=== PATIENT | female | born 1970 | race Caucasian/White ===

== ENCOUNTER 2019-02-18 16:36 | Observation (INO) ==
[2019-02-18] MEDS ORDERED: ASPIRIN PO ONE (16:44)
--- NOTE | 2019-02-18 16:51 | EKG Report ---
Test Performed on : 02/18/2019 4:46:46 PM Test Reason : chest pain Blood Pressure : / mmHG Vent. Rate : 094 BPM Atrial Rate : 094 BPM P-R Int : 134 ms QRS Dur : 080 ms QT Int : 362 ms P-R-T Axes : 010 071 002 degrees QTc Int : 452 ms Normal sinus rhythm. Normal ECG No previous ECGs available Unconfirmed Result
[2019-02-18] MEDS ORDERED: ATIVAN PO ONE (17:05)
[2019-02-18] MEDS ORDERED: NITROGLYCERIN SL ONE (17:05)
--- NOTE | 2019-02-18 17:10 | Diag Imaging Result Doc PS360 ---
EXAM: CHEST-PORTABLE INDICATION: chest pain TECHNIQUE: One view COMPARISON: None. FINDINGS: The lungs are grossly clear. There is no discrete pleural fluid collection or pneumothorax. The cardiomediastinal silhouette and central vasculature are grossly unremarkable. IMPRESSION: No evidence of acute pathology by plain radiograph. Electronically signed by Geoffrey Ureña 02/18/2019 5:08 PM
[2019-02-18 17:12] LABS: BASO# 0.06 X1000 (0.0-0.2); BASO% 0.6 % (0.0-0.8); EOS# 0.18 X1000 (0.0-0.7); EOS% 1.9 % (0.0-10.0); HEMATOCRIT 43.4 % (37.0-47.0); HEMOGLOBIN 14.6 g/dL (12.0-16.0); IMM GRAN# 0.01 X1000 (0.0-0.04); IMM GRAN% 0.1 % (0.0-0.5); LYMPH# 2.81 X1000 (1.2-3.4); LYMPH% 29.1 % (20.5-51.1); MCH 28.3 PG (27-31); MCHC 33.6 g/dL (33-37); MCV 84.3 FL (81-99); MONO# 1.03 X1000 (0.11-0.59); MONO% 10.7 % (1.7-9.3); MPV 10.5 FL (7.4-10.4); NEUT# 5.58 X1000 (1.4-6.5); NEUT% 57.6 % (42.2-75.2); PLT 340 X1000 (130-400); RBC 5.15 XMIL (4.2-5.4); RDW 14.9 % (11.5-14.5); WBC 9.67 X1000 (4.8-10.8)
[2019-02-18 17:43] LABS: AGAP 14; ALBUMIN 4.5 g/dL (3.5-5.0); ALKALINE PHOSPHATASE 108 U/L (32-104); BUN 10 mg/dL (8-22); CALCIUM 10.2 mg/dL (8.8-10.2); CHLORIDE 105 mmol/L (98-107); COSMO 286; CREATININE 0.8 mg/dL (0.5-0.9); ESTIMATED GFR > 60; GLUCOSE 97 mg/dL (70-104); GOT 23 U/L (10-30); GPT 21 U/L (10-36); POTASSIUM 3.8 mmol/L (3.5-5.1); SODIUM 144 mmol/L (136-145); TCO2 25 mmol/L (25-35); TOTAL PROTEIN 7.2 g/dL (6.3-8.3)
[2019-02-18 17:53] LABS: INR 0.9; PROTIME 12.6 Seconds (11.0-16.0)
[2019-02-18 17:54] LABS: PTT 32.1 Seconds (22.3-41.8)
[2019-02-18 18:09] LABS: CK INDEX 2.1 (0.0-2.5); CK-MB 5.52 ng/mL (0.0-5.0)
[2019-02-18] MEDS ORDERED: TORADOL IV PRN (19:29)
[2019-02-18] MEDS ORDERED: MORPHINE IV PRN (19:29)
[2019-02-18] MEDS ORDERED: TYLENOL PO PRN (19:29)
[2019-02-18] MEDS ORDERED: ZOFRAN IV PRN (19:29)
--- NOTE | 2019-02-18 19:29 | PROVIDER DOCUMENTATION ---
This chart was entered by Shannon Benavides Scribe, acting as scribe for Randy Rice MD. HPI-Chest Pain - General Chief Complaint: Chest Pain Stated Complaint: SOB, CHEST PAIN Time Seen by Provider: 02/18/19 17:00 Source: patient, family Allergies/Adverse Reactions: Patient Allergies Allergy/AdvReac Type Severity Reaction Status Date / Time No Known Allergies Allergy Verified 02/18/19 16:42 Home Medications: Home Medication List Medication Instructions Recorded Confirmed Last Taken Type Amoxicillin/Potassium Clav 1 each PO BID #20 tablet 08/28/15 Unknown Rx [Augmentin 875-125 Tablet] - History of Present Illness-CP Nature of Presenting Problem: 48 yowf presents to the ed with c/o chest pain, heartburn, scapula pain and numbness to bilateral hands and lips. pt sts acute onset was 1300 today after lunch, pt thought it was gerd sx so took antacid but had no relief. pt is tearfu l and anxious on exam and sts pain is still present Location: reports: substernal (and left anterior) Chest Pain Radiation: reports: back (left scapula) Quality of Pain: reports: burning Severity in ED: moderate Onset/Duration: this afternoon (1300) Timing: still present Modifying Factors: improves with: nothing Associated Symptoms: reports: back pain. denies: abdominal pain, dizziness, headache, nausea, shortness of breath, vomiting Nitro Today/Relief: no nitro taken today Aspirin Treatment Today: 325 mg x 1, provided by ED Prior Chest Pain/Cardiac Workup: reports: no prior chest pain Similar Symptoms Previously?: No Recently Seen Here or By Another Healthcare Provider: No Review of Systems - Adult - REVIEW OF SYSTEMS - ADULT Constitutional: reports: no symptoms reported Eyes: reports: no symptoms reported Ears, Nose, Mouth & Throat: reports: no symptoms reported Cardiovascular: reports: see HPI, chest pain. denies: edema, palpitations Respiratory: denies: cough, shortness of breath, wheezing Gastrointestinal: reports: see HPI. denies: abdominal pain, diarrhea, nausea, vomiting Genitourinary: reports: no symptoms reported Musculoskeletal: reports: see HPI, back pain. denies: neck pain Integumentary: reports: no symptoms reported Neurological: reports: see HPI, numbness (bilateral hands and lips). denies: dizziness/vertigo, headache/migraines, seizure, slurred speech, syncope, tremors Psychiatric: reports: no symptoms reported Endocrine: reports: no symptoms reported Hematologic/Lymphatic: reports: no symptoms reported Allergic/Immunologic: reports: no symptoms reported All Other Systems: Reviewed and Negative Past History - Adult - PAST MEDICAL HISTORY-ADULT Review of Records: reports: Nursing Assessment Review, Medications Reviewed Major Childhood Illnesses: reports: denies history Cardiovascular: reports: denies history Respiratory: reports: denies history Gastrointestinal: reports: GERD Obstetrical/Gynecological: reports: denies history Genitourinary: reports: denies history Musculoskeletal: reports: denies history Hand Dominance: Right Handed Neurological: reports: denies history Psychiatric: reports: denies history Endocrine/Immune: reports: denies history Other Conditions: reports: denies history - PRIOR SURGERIES/PROCEDURES Surgical/Procedure History: reports: other (sinus sx) - IMMUNIZATION STATUS Childhood Immunizations: See Nurse Assessment Flu Vaccine: See Nurse Assessment - FAMILY HISTORY Family History: reviewed, not pertinent - SOCIAL HISTORY Smoking: denies Alcohol Use Frequency: never Living Situation: family Physical Exam-General - PHYSICAL EXAM-ADULT Initial Vital Signs Reviewed: Yes - CONSTITUTIONAL General Appearance: alert, mild distress, obese, anxious - EYES Eyes: PERRL/EOMI, pink conjunctivae - HEAD, EARS, NOSE, MOUTH & THROAT HENMT: moist mucous membranes - NECK Neck: non-tender, full range of motion, supple, normal inspection - RESPIRATORY Respiratory: chest non-tender, lungs clear, normal breath sounds - CARDIOVASCULAR Cardiovascular: normal peripheral pulses, regular rate, rhythm - CHEST (BREASTS) Chest/Breast: no tenderness - GASTROINTESTINAL (ABDOMEN) Abdominal Exam: normal bowel sounds, non tender, soft - GENITOURINARY Female Genitalia/Pelvic Exam: deferred Rectal Exam: deferred Hemoccult Exam: deferred - LYMPHATIC Lymphatic: no adenopathy - MUSCULOSKELETAL Back Exam: normal inspection, no CVA tenderness, no vertebral tenderness Extremity: normal range of motion, non-tender, normal gait, normal inspection, no pedal edema, no calf tenderness, normal capillary refill, pelvis stable - SKIN Integumentary: normal color, normal turgor, warm/dry - NEUROLOGIC Neurologic: grossly normal, no motor/sensory deficits - PSYCHIATRIC Psych/Mental Status: normal mood/affect, normal thought content, normal thought process, oriented x 3, anxious, tearful - HEART Score HEART Score: History: Moderately Suspicious HEART Score: ECG: Normal HEART Score: Age: 45-65 Years HEART Score: Risk Factors for Atherosclerotic Disease: 1 or 2 Risk Factors HEART Score: Troponin: < or = Normal Limit Total HEART Score:: 3 Progress - PLAN OF CARE/RESULTS Progress/Plan/Lab Results: Vital Signs - 8 hr 02/18/19 16:40 02/18/19 18:17 02/18/19 18:59 Temperature 98.1 F Pulse Rate 95 H 82 88 Respiratory Rate 16 25 H 17 Blood Pressure 126/59 117/65 111/68 O2 Sat by Pulse Oximetry 97 98 98 Laboratory Results - last 24 hr 02/18/19 02/18/19 02/18/19 16:55 16:55 16:55 WBC RBC Hgb Hct MCV MCH MCHC RDW Std Deviation Plt Count MPV Immature Gran % (Auto) Neut % (Auto) Lymph % (Auto) [place] % (Auto) Eos % (Auto) Baso % (Auto) Immature Gran # (Auto) Neut # (Auto) Lymph # (Auto) [place] # (Auto) Eos # (Auto) Baso # (Auto) PT INR PTT (Actin FS) Sodium 144 Potassium 3.8 Chloride 105 Carbon Dioxide 25 Anion Gap 14 BUN 10 Creatinine 0.8 Estimated GFR/1.73 m2 > 60 BUN/Creatinine Ratio 13 Glucose 97 Calculated Osmolality 286 Calcium 10.2 Total Bilirubin 0.40 AST 23 ALT 21 Alkaline Phosphatase 108 H Creatine Kinase 259 H Creatine Kinase Index 2.1 CK-MB (CK-2) 5.52 H Troponin T < 0.010 Eed-E-Nwwfvdfwriy Pept Total Protein 7.2 Albumin 4.5 Globulin 3.0 Albumin/Globulin Ratio 2.0 02/18/19 02/18/19 02/18/19 16:55 16:55 16:55 WBC 9.67 RBC 5.15 Hgb 14.6 Hct 43.4 MCV 84.3 MCH 28.3 MCHC 33.6 RDW Std Deviation 14.9 H Plt Count 340 MPV 10.5 H Immature Gran % (Auto) 0.1 Neut % (Auto) 57.6 Lymph % (Auto) 29.1 [place] % (Auto) 10.7 H Eos % (Auto) 1.9 Baso % (Auto) 0.6 Immature Gran # (Auto) 0.01 Neut # (Auto) 5.58 Lymph # (Auto) 2.81 [place] # (Auto) 1.03 H Eos # (Auto) 0.18 Baso # (Auto) 0.06 PT 12.6 INR 0.90 PTT (Actin FS) 32.1 Sodium Potassium Chloride Carbon Dioxide Anion Gap BUN Creatinine Estimated GFR/1.73 m2 BUN/Creatinine Ratio Glucose Calculated Osmolality Calcium Total Bilirubin AST ALT Alkaline Phosphatase Creatine Kinase Creatine Kinase Index CK-MB (CK-2) Troponin T Esa-I-Psqifrezmyq Pept 19 Total Protein Albumin Globulin Albumin/Globulin Ratio Orders Category Date Time Status Cardiac Monitoring DIRECTED Care 02/18/19 16:44 Active Oxygen Therapy- ED Nursing DIRECTED Care 02/18/19 16:44 Active Saline Loc NOW Care 02/18/19 16:44 Active CHEST-PORTABLE [RAD] Stat Exams 02/18/19 16:45 Completed CBC WITH ELECTRONIC DIFF [HEME] Stat Lab 02/18/19 16:55 Completed CK PROFILE [SP CHEM] Stat Lab 02/18/19 16:55 Completed COMPREHENSIVE METABOLIC PANEL [CHEM] Stat Lab 02/18/19 16:55 Completed PRO B-NATRIURETIC PEPTIDE Stat Lab 02/18/19 16:55 Completed PROTIME WITH INR [COAG] Stat Lab 02/18/19 16:55 Completed PTT [COAG] Stat Lab 02/18/19 16:55 Completed TROPONIN T Stat Lab 02/18/19 16:55 Completed TROPONIN T Timed Lab 02/18/19 21:00 Uncollected Aspirin Med 02/18/19 16:44 Discontinued 325 mg PO NOW ONE Lorazepam [Ativan] Med 02/18/19 17:05 Discontinued 0.5 mg PO NOW ONE Nitroglycerin Sl [Nitroglycerin] Med 02/18/19 17:05 Discontinued 0.4 mg SL NOW ONE CP/SOB/Palp >45 yrs of Age Stat Oth 02/18/19 16:44 Ordered EKG [EKG] Stat Ther 02/18/19 16:43 Draft Result Diagrams: 02/18/19 16:55 02/18/19 16:55 - REASSESSMENT Reassessment #1 Time Reassessed: 17:16 Status: unchanged - EKG 1 Time of EKG reading by physician:: 16:46 EKG Read and Signed by:: Randy Rice EKG Interpretation (*Must complete 3 of following elements*): Normal Rate: 94 Rhythm: nsr [place]: normal QRS: normal MA Interval: normal ST Wave: normal - XRAY 1 XRAY: Bilateral XRAY Study: Chest Impression: See EMR Report (EXAM: CHEST-PORTABLE INDICATION: chest pain TECHNIQUE: One view COMPARISON: None. FINDINGS: The lungs are grossly clear. There is no discrete pleural fluid collection or pneumothorax. The cardiomed iastinal silhouette and central vasculature are grossly unremarkable. IMPRESSION: No evidence of acute pathology by plain radiograph. Electronically signed by Geoffrey Ureña 02/18/2019 5:08 PM 02/18/191707 Interpreting Physician: Geoffrey Ureña MD Dictated Date/Time: 02/18/191707 cc: Randy Rice MD; Nabor Robb MD) - CONSULTS/PCP/HOSPITALIST Notification #1 *Consult/PCP/Hospitalist*: Dr Sawyer Time Discussed: 19:29 Consult Disposition: Admit Departure - Departure Date of Disposition Decision: 02/18/19 Time of Disposition Decision: 19:29 DIAGNOSIS: Chest pain Disposition: ADMITTED INPATIENT 09 Certified Medical Emergency: Emergent Condition: Fair Referrals and Follow-Ups: Nabor Robb MD [Primary Care Provider] - - Critical Care Note This patient required my direct & personal management of CC.: No Attestation - Physician/ KYLEE Attestation Patient care was provided by Advanced Practice Provider:: No The physician spent face to face time with patient:: Yes Advanced Practice Provider documentation review:: Supervising physician onsite and consulted in the evaluation and care of this patient. The physician did have a face to face encounter with the patient. This chart was documented by the indicated scribe, (Shannon Benavides Scribe) and accurately reflects the services I performed and decisions made by me, Randy Rice MD, as attested by the provider's signature.
[2019-02-19 11:23] VITALS: BP 98/53
--- NOTE | 2019-02-19 13:07 | HISTORY AND PHYSICAL ---
DATE OF HISTORY AND PHYSICAL: 02/19/2019 PRIMARY CARE PROVIDER: Nabor Robb MD CHIEF COMPLAINT: Chest pain with collarbone and shoulder pain, hand and lip numbness. HISTORY OF PRESENT ILLNESS: Ms. 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 She reported yesterday around 1300 she had substernal chest pain that got progressively worse throughout the day. She became flushed and sweaty, then she started hurting her collar bones and bilateral shoulder blades, then her hands and lips started tingling. She reported at that time she was watching her 6 grandchildren, who mainly consist of toddlers, and was running errands. She also complained of a headache. She did not necessarily feel any palpitations, but she felt like she could feel her heart beat pounding in her neck, and at the time, it was also hard for her to take a deep breath in. She reports getting up and walking around today. She feels a little loopy headed, but she is able to ambulate. Her chest pain has since resolved. She still does have a headache and some bilateral shoulder pain, but her numbness in her hands and lips has completely resolved. She has had 3 sets of negative cardiac enzymes. EKG was unremarkable. Follow-up EKG is currently pending. We will continue to monitor her in observation status and possibly discharge home later this afternoon and have her follow up with her primary care provider. PAST MEDICAL HISTORY: 1. Extreme narcolepsy. 2. Cervical cancer. PAST SURGICAL HISTORY: 1. Complete aggressive hysterectomy for precancerous cells on her cervix. 2. Tonsillectomy. FAMILY HISTORY: No history of heart disease. Mother of lung cancer. Biological father of leukemia. SOCIAL HISTORY: She is . She has 4 daughters, 8 grandchildren. No tobacco, alcohol, or illicit drug use. REVIEW OF SYSTEMS: A 12 point review of systems completely negative except for those mentioned in HPI. ALLERGIES: No known drug allergies. HOME MEDICATIONS: Adderall 20 mg p.o. t.i.d. PHYSICAL EXAMINATION: VITAL SIGNS: Temperature is 97.4 degrees, heart rate 81, respirations 18, blood pressure 98/53, O2 is 96% on room air. GENERAL: Ms. El is a pleasant 48-year-old female, who is sitting up in the bed in no acute distress. HEENT: Atraumatic, normocephalic. PERRL. NECK: Supple. Trachea midline. CARDIOVASCULAR: S1, S2 appreciated. No murmurs, gallops, or rubs noted. RESPIRATORY: Lung sounds clear bilaterally. GASTROINTESTINAL: Soft, nontender, nondistended. Positive bowel sounds. EXTREMITIES: Lower extremities are negative for edema. No signs of clubbing or cyanosis. NEUROLOGIC: No focal deficits noted. DIAGNOSTIC STUDIES: EKG: Normal sinus rhythm. Chest x-ray: No evidence of acute pathology. White count 9, hemoglobin 14, hematocrit 43, platelet count of 340,000. Sodium 144, potassium 3.8, BUN 10, creatinine 0.8, blood glucose 97. Three sets of troponins have been negative. ASSESSMENT AND PLAN: 1. Chest pain rule out. Patient is having atypical chest pain type symptoms, possibly related to stress. She has had 3 sets of negative cardiac enzymes as well as a normal EKG. No history of heart problems in the past. Her chest pain has since resolved. She reports she was having a stressful day yesterday. She was running errands her 6 grandchildren; at least 5 of them were toddlers. We encouraged her to follow up with her primary care provider for further testing. 2. Extreme narcolepsy. The patient will continue on her home Adderall. 3. Precancerous cells cervical cancer status post aggressive hysterectomy. Aware. DISPOSITION: The patient may be discharged to home later this afternoon if she ambulates without any chest pain. She has been ambulating in her room without any chest pain. She still does have bilateral shoulder pain. Dictated by BINA Arreguin for Gideon Sawyer MD cc: Gideon Sawyer MD
--- NOTE | 2019-02-19 22:53 | HISTORY AND PHYSICAL ---
ADDENDUM: Patient seen and examined by myself. Full note dictated and discussed with nurse practitioner. Patient is a 48-year-old female who presented to the hospital with chest pain and scapular pain. We will admit her to the hospital and rule out OK. The patient currently is awake and alert. She is in no distress. Please see full note. cc: Gideon Sawyer MD
--- NOTE | 2019-02-20 03:43 | DISCHARGE SUMMARY ---
ADMISSION DATE: 02/19/2019 DISCHARGE DATE: 02/19/2019 PRIMARY CARE PROVIDER: Nabor Robb. CHIEF COMPLAINT: 1. Chest pain. 2. Collarbone and shoulder pain. 3. Limb numbness and bilateral hand numbness. BRIEF HISTORY OF PRESENT ILLNESS: Ms El is a 48-year-old female with a past medical history of narcolepsy for which she takes Adderall. Reported around 13:00 yesterday with substernal chest pain that got progressively worse throughout the day. She became flushed, sweaty, started hurting in her collarbones and bilateral shoulder blades. Her hands, lips numb and started tingling. At the time, she was watching her 6 grandchildren who mainly consist of toddlers and was running errands around town. She also complained of a headache. Her workup in the ED was completely negative. She has had a stable hospital course and will be discharged back home today to follow up with her primary care provider, Dr. Nabor Robb. VITAL SIGNS: At time of her discharge, temperature is 97.4 degrees, heart rate 81, respirations 18, blood pressure 98/53, O2 is 96% on room air. DISCHARGE DIET: Regular. DISCHARGE MEDICATIONS: Adderall 20 mg p.o. t.i.d. FOLLOWUP: Ms. El is being discharged back home with self care. She is to follow up with her primary care provider, Dr. Nabro Robb. She can return to the ED or call 911 for any worsening of symptoms. Dictated by BINA Arreguin for Gideon Sawyer MD cc: Gideon Sawyer MD
--- NOTE | 2019-02-20 17:44 | DISCHARGE SUMMARY ---
ADMISSION DATE: 02/18/2019 DISCHARGE DATE: 02/19/2019 DISCHARGE DIAGNOSES: 1. Chest pain. 2. Reflux. 3. Musculoskeletal pain. CONSULTATIONS: None. PROCEDURES: None. BRIEF HOSPITAL COURSE: The patient is a 48-year-old female who presented to the hospital, treated in the usual fashion. She was ruled out for an AL. Thankfully, on discharge all of her chest pain symptoms have completely disappeared. She is able to ambulate in the aaron without any difficulty and without any further chest pain. DISPOSITION: The patient will be discharged home. She has ruled out for an AL. If symptoms worsen or return, she will need to follow up with her primary care and be scheduled for an outpatient stress test. Currently, chest pain is resolved and it certainly seems more musculoskeletal. cc: Gideon Sawyer MD
== END 2019-02-19 15:05 | disposition home or self-care (01) ==
LOC: P.MEDSURG 16:36 → P.ED 16:36
PROVIDERS: ATTEND Family Medicine
CPT/HCPCS: 71010; 71045; 80053; 82550; 82553; 83880; 84484; 85025; 85610; 85730; 93005; A9270